=== PATIENT | female | born 1950 | race Caucasian/White ===

== ENCOUNTER 2017-11-23 11:05 | Day surgery (SDC) | payer OTHER ==
[~2017-11-23] VITALS: Ht 165.1 cm; Wt 90.7 kg
[2017-11-23] MEDS ORDERED: ACETAMINOPHEN/CODEINE 300 MG-30 MG TABLET PO PRN (13:15)
[2017-11-23] MEDS ORDERED: MORPHINE 4 MG/ML INJ. SYRINGE IVP PRN (13:15)
[2017-11-23] MEDS ORDERED: ONDANSETRON HCL 4 MG/2 ML VIAL IVP PRN ×3 (13:15→13:45)
[2017-11-23] MEDS ORDERED: LR 1,000 ML IV ONE (13:40)
[2017-11-23] MEDS ORDERED: DIPHENHYDRAMINE INJ 50 MG/ML VIAL IVP PRN (13:45)
[2017-11-23] MEDS ORDERED: NALBUPHINE HCL 10 MG/ML AMP IVP PRN (13:45)
[2017-11-23] MEDS ORDERED: NALOXONE HCL 0.4 MG/ML AMP (NARCAN) IVP PRN (13:45)
[2017-11-23] MEDS ORDERED: ePHEDrine sulfate 50 MG/ML VIAL IVP PRN (13:45)
[2017-11-23] MEDS ORDERED: fentaNYL CITRATE/PF 100 MCG/2 ML AMP IVP PRN (13:45)
[2017-11-23] MEDS ORDERED: KETOROLAC TROMETHAMINE 30 MG VIAL IM PRN (13:45)
[2017-11-23] MEDS ORDERED: PROPOFOL 200MG/ 20ML VIAL (DIPRIVAN) IV ONE (13:56)
[2017-11-23] MEDS ORDERED: SUCCINYLCHOLINE CHLORIDE 20 MG/ML(QUELICIN) IVP ONE (13:56)
[2017-11-23] MEDS ORDERED: METOCLOPRAMIDE HCL 10 MG/2 ML VIAL IVP ONE (13:56)
[2017-11-23] MEDS ORDERED: KETOROLAC TROMETHAMINE 30 MG VIAL IVP ONE (13:56)
[2017-11-23] MEDS ORDERED: fentaNYL CITRATE/PF 100 MCG/2 ML AMP IVP ONE ×2 (13:56→14:20)
[2017-11-23] MEDS ORDERED: SEVOFLURANE 15 MIN GAS INH ONE (13:56)
[2017-11-23] MEDS ORDERED: DEXAMETHASONE SOD PHOSPHATE 4 MG/ML VIAL IVP ONE (13:56)
[2017-11-23] MEDS ORDERED: MIDAZOLAM HCL 5 MG/ML VIAL (VERSED) IV ONE (13:56)
[2017-11-23] MEDS ORDERED: LR 1,000 ML IV.SOLN IV ONE (13:56)
[2017-11-23] MEDS ORDERED: ONDANSETRON HCL 4 MG/2 ML VIAL IVP ONE (13:56)
[2017-11-23] MEDS ORDERED: fentaNYL CITRATE/PF 100 MCG/2 ML AMP ONE (14:28)
[2017-11-23 16:35] VITALS: BP_SYST 123
== END 2017-11-23 16:25 | disposition home or self-care (01) ==
LOC: SDS 11:05 → SMU 11:07 → SDS 16:25
PROVIDERS: ATTEND Surgery
DX: K64.8 Other hemorrhoids (principal); K64.4 Residual hemorrhoidal skin tags; I10 Essential (primary) hypertension; F41.9 Anxiety disorder, unspecified; Z79.899 Other long term (current) drug therapy
CPT/HCPCS: 36415; 46255; 88304; G0480; J0330; J1100; J1885; J2250; J2405; J2704; J2765; J3010; J7120